=== PATIENT | female | born 1945 ===

== ENCOUNTER 2018-07-30 11:25 | Outpatient (REF) | payer MEDICARE, OTHER, SELFPAY ==
[2018-07-30 21:55] LABS: ALT 35 U/L (12-78); AST 22 U/L (15-37); Albumin 3.8 g/dL (3.4-5.0); Alkaline Phosphatase 114 U/L (46-116); Bilirubin, Direct 0.06 mg/dL (0.00-0.20); Bilirubin, Total 0.2 mg/dL (0.2-1.0); Total Protein 6.5 g/dL (6.4-8.2)
== END 2018-07-30 11:45 ==
LOC: NCHCN 11:25
PROVIDERS: PCP Registered Nurse; Visit Provider Registered Nurse
DX: B35.1 Tinea unguium (principal)
CPT/HCPCS: 80076

== ENCOUNTER 2018-10-01 13:29 | Outpatient (REF) | payer MEDICARE, OTHER, SELFPAY ==
[2018-10-01 21:05] LABS: Anion Gap 9.7 mmol/L (3-11); BUN 19 mg/dL (7-18); CO2 28.3 mmol/L (21.0-32.0); CREATININE 1.01 mg/dL (0.55-1.02); Calcium 9.3 mg/dL (8.5-10.1); Chloride 103 mmol/L (98-107); Estimated GFR 53.88 (mL/min/1.73m2); Glucose 84 mg/dL (70-100); Potassium 3.7 mmol/L (3.5-5.1); Sodium 141 mmol/L (136-145); TSH (W/Ref FT4) 5.35 uIU/mL (0.358-3.74)
[2018-10-01 21:25] LABS: FREE T4 0.94 ng/dL (0.76-1.46)
[2018-10-04 10:31] LABS: CA 125 26 U/mL (0-30)
== END 2018-10-01 13:49 ==
LOC: NCHCN 13:29
PROVIDERS: PCP Registered Nurse; Visit Provider Family Medicine
DX: E03.9 Hypothyroidism, unspecified (principal); I10 Essential (primary) hypertension; B35.1 Tinea unguium; R97.1 Elevated cancer antigen 125 [CA 125]
CPT/HCPCS: 80048; 86304; 84439; 84443

== ENCOUNTER 2019-05-02 15:26 | Outpatient (REF) | payer MEDICARE, OTHER, SELFPAY ==
[2019-05-02 21:45] LABS: ALT 37 U/L (12-78); AST 23 U/L (15-37); Alkaline Phosphatase 108 U/L (46-116); Bilirubin, Total 0.4 mg/dL (0.2-1.0); Calculated LDL 136 mg/dL; Cholesterol 221 mg/dL (50-200); HDL Cholesterol 65 mg/dL (40-60); Total Protein 6.8 g/dL (6.4-8.2); Triglyceride 104 mg/dL (30-150)
== END 2019-05-02 15:46 ==
LOC: NCHCN 15:26
PROVIDERS: PCP Registered Nurse; Visit Provider Family Medicine
DX: E78.9 Disorder of lipoprotein metabolism, unspecified (principal); B35.1 Tinea unguium
CPT/HCPCS: 80061; 80076; 83721

== ENCOUNTER 2019-05-31 17:18 | Outpatient (REF) | payer MEDICARE, OTHER, SELFPAY | END 2019-05-31 17:38 | LOC: NCHCN 17:18 | PROVIDERS: PCP Registered Nurse; Visit Provider Family Medicine | DX: R30.0 Dysuria (principal) | CPT/HCPCS: 87077; 87086; 87186 ==

== ENCOUNTER 2019-10-05 10:40 | Outpatient (REF) | payer MEDICARE, OTHER, SELFPAY ==
[2019-10-05 22:41] LABS: Anion Gap 7.9 mmol/L (3-11); BUN 18 mg/dL (7-18); CO2 26.1 mmol/L (21.0-32.0); CREATININE 0.96 mg/dL (0.55-1.02); Calcium 8.8 mg/dL (8.5-10.1); Chloride 108 mmol/L (98-107); Estimated GFR 56.97 (mL/min/1.73m2); Glucose 122 mg/dL (74-106); Potassium 3.8 mmol/L (3.5-5.1); Sodium 142 mmol/L (136-145); TSH (W/Ref FT4) 2.09 uIU/mL (0.36-3.74)
== END 2019-10-05 11:00 ==
LOC: NCHCN 10:40
PROVIDERS: Family Medicine; PCP Registered Nurse; Visit Provider Registered Nurse
DX: E03.9 Hypothyroidism, unspecified (principal); I10 Essential (primary) hypertension
CPT/HCPCS: 80048; 84443

== ENCOUNTER 2020-07-25 19:54 | Outpatient (REF) | payer MEDICARE, OTHER, SELFPAY | END 2020-07-25 20:14 | LOC: NCHCN 19:54 | PROVIDERS: PCP Registered Nurse; Visit Provider Registered Nurse | DX: R35.0 Frequency of micturition (principal) | CPT/HCPCS: 87086 ==